=== PATIENT | male | born 1975 | race Caucasian/White ===

== ENCOUNTER 2024-09-08 11:10 | Outpatient (CLI) | payer BC, SELFPAY | END 2024-09-08 11:11 | disposition home or self-care (01) | PROVIDERS: PCP Family Medicine; Visit Provider Family Medicine | DX: Z00.00 Encounter for general adult medical examination without abnormal findings (principal); I10 Essential (primary) hypertension; Z13.6 Encounter for screening for cardiovascular disorders; Z83.49 Family history of other endocrine, nutritional and metabolic diseases | CPT/HCPCS: 80048; 80061; 82103 ==

== ENCOUNTER 2025-10-21 13:47 | Outpatient (CLI) | payer BC, SELFPAY | END 2025-10-21 13:48 | disposition home or self-care (01) | PROVIDERS: PCP Family Medicine; Visit Provider Family Medicine | DX: I10 Essential (primary) hypertension (principal); Z12.5 Encounter for screening for malignant neoplasm of prostate; Z13.89 Encounter for screening for other disorder; R82.90 Unspecified abnormal findings in urine | CPT/HCPCS: 80048; 87086; G0103 ==